=== PATIENT | male | born 1995 ===

== ENCOUNTER 2016-09-22 18:25 | Emergency (ER) | payer OTHER ==
[2016-09-22 18:38] VITALS: BP 125/68; PULSE 100; RESP 18; TEMP 98.5; O2SAT 100
[2016-09-22] MEDS ORDERED: TDAP Vaccine 0.5 mL Syr IM ONE (18:46)
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
--- NOTE | 2016-09-23 08:34 | CT ---
PROCEDURE: HISTORY: EVALUATE FOR PATELLAR TENDON INJURY COMPARISON: TECHNIQUE: FINDINGS: Anterior soft tissue swelling with a nondisplaced fracture of the inferior medial patella. Large joint effusion. No evidence of patellar tendon tear IMPRESSION: As above.
--- NOTE | 2016-09-23 10:49 | RAD ---
PROCEDURE: Left Knee Radiographs. HISTORY: COMPARISON: No prior. FINDINGS: BONES: No acute displaced fracture. JOINTS: No dislocation. JOINT EFFUSION: Moderate to large suprapatellar joint effusion. OTHER FINDINGS: None. IMPRESSION: Moderate to large suprapatellar joint effusion. Please refer to subsequent CT of the left knee for additional findings.
== END 2016-09-22 22:29 | disposition home or self-care (01) ==
LOC: H.ER 18:25
DX: S89.92XA Unspecified injury of left lower leg, initial encounter (principal); W22.8XXA Striking against or struck by other objects, initial encounter; Y99.0 Civilian activity done for income or pay

== ENCOUNTER 2017-04-14 17:33 | Emergency (ER) | payer OTHER ==
[2017-04-14 17:38] VITALS: BP 119/79; PULSE 74; RESP 18; TEMP 97.7; O2SAT 99
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
== END 2017-04-14 18:30 | disposition home or self-care (01) ==
LOC: H.ER 17:33
DX: S39.012A Strain of muscle, fascia and tendon of lower back, initial encounter (principal); V89.2XXA Person injured in unspecified motor-vehicle accident, traffic, initial encounter